=== PATIENT | male | born 1970 | race Caucasian/White ===

== ENCOUNTER 2019-01-02 12:39 | Outpatient (RCR) | payer BC, SELFPAY | END 2019-01-02 12:45 | disposition home or self-care (01) | LOC: PT 12:39 | PROVIDERS: Referring Provider Orthopaedic Surgery; Visit Provider Orthopaedic Surgery | DX: M25.562 Pain in left knee (principal); M25.512 Pain in left shoulder | CPT/HCPCS: 97163 ==

== ENCOUNTER 2022-03-11 12:13 | Emergency (ER) | payer BC, SELFPAY ==
[2022-03-11 12:14] VITALS: BP 135/84; PULSE 110; RESP 18; TEMP 37.2; O2SAT 95; BMI 35.5
--- NOTE | 2022-03-11 12:21 | PC.NURSE ---
KORIN Dennis at BS
[2022-03-11 12:31] VITALS: BP 108/75; PULSE 123; O2SAT 95
[2022-03-11 12:40] VITALS: BMI 35.5
--- NOTE | 2022-03-11 12:41 | CA_ITS ---
FINAL REPORT TECHNIQUE: Sonographic images of the veins of the left upper extremity were obtained from axilla to antecubital fossa. Additionally, images of the internal jugular vein and subclavian vein were also obtained. CLINICAL HISTORY: KNOT PROX MEDIAL/LAT FOREARM,S/P CHEST SURGERY 02/26/22 WITH 2 IV'S IN LEFT ARM FINDINGS: The veins of the left upper extremity are compressible from axilla to antecubital fossa. Blood flow is demonstrated by both color and spectral Doppler as well. The internal jugular vein and subclavian vein are also patent. There is superficial venous thrombosis in the left forearm. IMPRESSION: No evidence of venous thrombosis of the upper extremity. Superficial venous thrombosis in the left forearm at the area of interest. Reviewed, Interpreted and Dictated by Nathaniel Frey III, MD Transcribed by Duyen Vo Authenticated by Nathaniel Frey III, MD on 03/11/2022 02:07:40 PM [facility]
--- NOTE | 2022-03-11 12:42 | PC.NURSE ---
notified [facility] lab of doppler order, spoke with alexa.
--- NOTE | 2022-03-11 12:50 | PC.NURSE ---
KORIN Dennis at BS
--- NOTE | 2022-03-11 12:52 | PC.NURSE ---
pt placed in gown CV lab staff at [facility]
--- NOTE | 2022-03-11 12:53 | PC.NURSE ---
Doppler tech at [facility] for exam
--- NOTE | 2022-03-11 13:06 | HMH.EDGENADL ---
ED Disposition Clinical Impression: Superficial phlebitis of arm Disposition: Home, Self-Care Condition on Discharge: Good Instructions: Superficial Thrombophlebitis Additional Instructions: follow up pcp as needed, return for worse Prescriptions: cephALEXin [cephALEXin 500mg capsule*] 500 mg PO Q8 #30 cap Transmission Status: Pending to [id number] Referrals: Provider,Referral, [Primary Care Provider] - - Critical Care Critical Care Time: No Attestation: On 03/11/22, the high probability of a clinically significant, sudden or life threatening deterioration of the following system(s) required my full and direct attention, intervention and personal management. The time I documented below is in addition to time spent performing reported procedures but includes the following listed in this critical care notation. Medical Decision Making - Medical Records Medical records reviewed: Yes: I reviewed the patient's medical records. - Percy Inquiry Pt receiving controlled substance: No Vital Signs: 03/11/22 12:14 03/11/22 12:31 Temperature 99.0 F Temperature Source Oral Pulse Rate 123 H Pulse Rate [Right Radial] 110 H Respiratory Rate 18 Blood Pressure 108/75 L Blood Pressure [Right Arm] 135/84 Blood Pressure Mean [Right Arm] 101 Blood Pressure Source Automatic Cuff Blood Pressure Source [Right Arm] Automatic Cuff Blood Pressure Position Sitting Blood Pressure Position [Right Arm] Sitting 02 Sat by Pulse Oximetry 95 95 Oxygen Delivery Method Room Air Room Air General Adult HPI - General Chief complaint: PAIN Stated complaint: surgery 02/26, knot in arm Time Seen by Provider: 03/11/22 13:06 Mode of Arrival: Ambulatory Limitations: No Limitations Description of Symptoms (Recalled from ER Triage Doc. by RN): Pt reports painful area on LUE just below AC area, pt reports noticed knot like area 2 days ago. Pt reports was advised by his surgeon to have area checked for DVT r/t had recen't extensive surgery on his chest. 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 Healing incision noted to L upper back to under axillary area. - History of Present Illness HPI narrative: left forearm pain, palpable cord at iv site, worsening few days, s/p lung surgery Onset (ago): day(s) Location: upper extremity Radiation: non-radiation Severity: moderate Quality: aching Consistency: constant Relieving factors: none Exacerbating factors: none Associated symptoms: denies other symptoms - Related Data Home Medications Medication Instructions Recorded Confirmed Omeprazole [Omeprazole 40mg 40 mg PO DAILY 07/08/18 03/11/22 Capsule] losartan 50 mg tablet 50 mg PO DAILY #30 tab 04/03/19 03/11/22 Gabapentin [Gabapentin 100mg Cap] 100 mg PO TID 03/11/22 03/11/22 Previous Rx's Medication Instructions Recorded cephALEXin [cephALEXin 500mg 500 mg PO Q8 #30 cap 03/11/22 capsule*] Allergies Allergy/AdvReac Type Severity Reaction Status Date / Time No Known Allergies Allergy Verified 05/29/19 16:00 [facility] History - Hepatitis A Screen Drug use history?: No High risk sexual behaviors?: No History of sexually transmitted infection?: No Currently employed?: No Childcare worker?: No Do you have indoor plumbing?: Yes Do you have electricity?: Yes Attestation statement:: This patient has been screened for Hepatitis A risk factors. Medical History: Denies:: Cancer, Diabetes Mellitus Type 1, Diabetes Mellitus Type 2, MRSA Other Surgeries: Yes: No Previous Surgery Amputation: No Fractures: No - Social History Smoking Status: Never smoker Alcohol Intake: current Alcohol Intake Frequency:: holidays/special occasions only Substance Use Type: denies use Occupational Status: employed Housing: house Household Members: family Family Hx:: No significant family history ROS Obtained: Yes All systems reviewed & no additiona
--- NOTE | 2022-03-11 13:37 | PC.NURSE ---
ED MD at for update on POC
[2022-03-11 13:57] VITALS: BP 110/82; PULSE 112; RESP 20; TEMP 37.2; O2SAT 95
== END 2022-03-11 13:58 | disposition home or self-care (01) ==
PROVIDERS: Emergency Provider Emergency Medicine
DX: I80.8 Phlebitis and thrombophlebitis of other sites (principal)
CPT/HCPCS: 93971; 99284